=== PATIENT | male | born 1945 | race Caucasian/White ===

== ENCOUNTER 2022-01-27 10:57 | Emergency (ER) | payer OTHER ==
[~2022-01-27] VITALS: Ht 188 cm; Wt 102.1 kg
[~2022-01-27 10:57] MED LIST: CHOLESTROL MED; DILT180; GLUCHON; MULVITMIND; SULTRIDS PO; WARF7.5
== END 2022-01-27 11:50 | disposition home or self-care (01) ==
LOC: ER 10:57
DX: Z48.01 Encounter for change or removal of surgical wound dressing (principal); Z79.899 Other long term (current) drug therapy
CPT/HCPCS: 99282

== ENCOUNTER 2022-01-31 14:58 | Emergency (ER) | payer OTHER ==
[~2022-01-31] VITALS: Ht 190.5 cm; Wt 102.1 kg
== END 2022-01-31 16:45 | disposition home or self-care (01) ==
LOC: ER 14:58
DX: L76.21 Postprocedural hemorrhage of skin and subcutaneous tissue following a dermatologic procedure (principal); Z79.01 Long term (current) use of anticoagulants; I48.91 Unspecified atrial fibrillation; Z79.899 Other long term (current) drug therapy
CPT/HCPCS: 99283

== ENCOUNTER 2022-02-01 09:34 | Emergency (ER) | payer OTHER ==
[~2022-02-01] VITALS: Ht 190.5 cm; Wt 102.1 kg
== END 2022-02-01 10:35 | disposition home or self-care (01) ==
LOC: ER 09:34
DX: Z09 Encounter for follow-up examination after completed treatment for conditions other than malignant neoplasm (principal); Z98.890 Other specified postprocedural states; Z79.01 Long term (current) use of anticoagulants; Z79.899 Other long term (current) drug therapy
CPT/HCPCS: 99282